=== PATIENT | male | born 1940 | race Caucasian/White ===

== ENCOUNTER → 2016-09-21 | Day surgery (SDC) | payer OTHER ==
[~2016-09-21] MED LIST: AMPICILLIN PO; ASPIRIN EC81 M1 PO; ASPIRIN81 M2 PO; CELECOXIB200 M1 PO; CELECOXIB200 MG PO; CLARITIN10 M2 PO; CLARITIN10 M3 PO; FLOMAX0.4 M1; FLOMAX0.4 M1 PO; FLONASE 0.05% N16 G1; HYDROCODON-ACE1 EAC9 PO; LEVAQUIN750 M1 PO; LIPITOR20 MG PO; MULTIVITAMINS1 EAC3 PO; NORVASC10 MG PO; PROTONIX PO; TERAZOSIN HCL10 MG PO
--- NOTE | ~2016-09-21 | OR ---
Unit #: [id number] #: [id number] Patient: ROM DUTTA [id number] [address] [place], [place] [address] [id number] O MR#: [id number] NAME: ROM DUTTA ROOM: Date of Procedure: 09/21/2016 Admission Date: 09/21/2016 Surgeon: Mane Casanova M.D. : 1940 Attending Physician: Mane Casanova M.D. Referring Physician: Mane Casanova M.D. Primary Care Physician: Tiffanie Joshi M.D. OPERATIVE REPORT PREOPERATIVE DIAGNOSES The patient had residual common bile duct stones and a biliary stent. He came for elective removal of the biliary stent and complete clearance of common bile duct. PROCEDURES PERFORMED 1. Endoscopic retrograde cholangiopancreatography and removal of the stones and debris from the common bile duct. 2. Endoscopic retrograde cholangiopancreatography and stent removal. RECOMMENDATIONS The patient will be followed up in the office in 3 to 4 months' time. Discussion will be held with the patient regarding need of cholecystectomy. At his age of 76, particularly if he has large sphincterotomy, the cholecystectomy can be deferred. This will be discussed at length with the patient when he comes back for followup. SEDATION USED MAC. POSTOPERATIVE DIAGNOSES 1. The patient had previous sphincterotomy. The biliary stent was removed. 2. There were some filling defects in the common bile duct, which were cleared by a 9 to 12 mm retrieval balloon with multiple passages through the common bile duct. The debris and stone fragments were then delivered and normal occlusion cholangiogram was documented postprocedure. DESCRIPTION OF PROCEDURE Following detailed explanation of potential risks and complications of an ERCP, namely perforation, bleeding, complication related to sedation, and pancreatitis, the patient brought to GI lab and laid in the left semiprone position. A lateral viewing duodenal scope was advanced through the oral cavity into the esophagus and advanced into the stomach. Pylorus was intubated in usual fashion. The scope was advanced in deep descending duodenum. Upon shortening the scope, major papilla and ampullary area was visualized en face. The patient was noted to have periampullary diverticulum and a stent placed in from the previous procedure. The biliary stent was removed using a polypectomy snare and delivered outside. The patient was then reintubated and through the previous sphincterotomy site, a guidewire was introduced using a sphincterotome into the common bile duct. Contrast cholangiogram was obtained that showed multiple filling defects in the distal common bile duct. Some of these were all Unit #: [id number] #: [id number] Patient: ROM DUTTA air bubbles. We then proceeded with a balloon extraction of any residual stones. This was done using 9 to 12 mm retrieval balloon and the duct was swept at 9, 10, and 11 mm settings multiple times. Multiple fragments and tiny stones were delivered into the duodenum. Normal occlusion cholangiogram was demonstrated. Excellent biliary drainage was established. The scope and the accessories were then withdrawn. The patient returned to the recovery area. He tolerated the procedure without any postprocedure complications. Dictated by... Kian Yan/josselin TD: 09/22/2016 02:08 JOB #: [id number] CC: Tiffanie Joshi M.D. OPERATIVE REPORT Page 1 of 1 X Mane Casanova MD X PROCEDURE OPERATIVE NOTE
--- NOTE | ~2016-09-21 | CR84 ---
[facility] A Service of [facility] RADIOLOGY TEXT RESULTS PATIENT: ROM DUTTA LOCATION: [facility] : 42 UNIT #: [id number] AGE: [address]: Mane Casanova MD SEX: M ORDER DR: [id number] [facility] [address] [facility]. [place], [place] [address] [id number] O MR#: [id number] Acc #: [id number] NAME: ROM DUTTA : 1940 SEX: M STUDY DATE/TIME: 09/21/2016 13:22 UNIT: [facility] ROOM: STUDY DESCRIPTION: CR ERCP Biliary and Pancr SI Attending Physician: Mane Casanova M.D. Referring Physician: Mane Casanova M.D. Ordering Physician: Mane Casanova M.D. Primary Care Physician: Tiffanie Joshi M.D. MEDICAL IMAGING REPORT This report is preliminary unless electronic signature is present EXAM ERCP, 09/21/2016 HISTORY Right upper quadrant abdominal pain and common bile duct stones. FINDINGS ERCP was performed by Dr. Casanova. 10 spot film radiographs of the right upper quadrant were obtained and 4.4 minutes of fluoroscopy time was utilized. Surgical clips are seen in the right upper quadrant from prior cholecystectomy. Contrast injection of the pancreatic duct was normal. Injection of the biliary tree was performed showing mild dilatation of the common bile duct. There are multiple filling defects characteristic of stones and air bubbles in the duct. Normal contrast drainage was seen into the duodenum. The distal common bile duct near the sphincter of Oddi was normal in appearance. Sphincterotomy was performed by Dr. Casanova. Balloon catheter was then used to remove stones from the common duct. Dictated by... Duran Morris M.D. THIS IS AN ELECTRONICALLY VERIFIED REPORT Duran Morris M.D. at 09/22/2016 7:47 AM Daniela TD: 09/21/2016 19:38 JOB #: [id number] MEDICAL IMAGING REPORT Page 1 of 1 COPY
== END | disposition home or self-care (01) ==
LOC: COPS 10:40
DX: Z46.59 Encounter for fitting and adjustment of other gastrointestinal appliance and device (principal); K80.50 Calculus of bile duct without cholangitis or cholecystitis without obstruction; K21.9 Gastro-esophageal reflux disease without esophagitis; N40.0 Benign prostatic hyperplasia without lower urinary tract symptoms; Z98.41 Cataract extraction status, right eye; Z98.42 Cataract extraction status, left eye; Z79.82 Long term (current) use of aspirin; Z79.899 Other long term (current) drug therapy
CPT/HCPCS: 74330

== ENCOUNTER 2016-09-27 19:27 | Inpatient (IN) | payer OTHER ==
--- NOTE | ~2016-09-27 | DS ---
Unit #: [id number] #: [id number] Patient: ROM WASHINGTON [id number] [address] [place], [place] [address] [id number] I MR#: [id number] NAME: ROM WASHINGTON. ROOM: 338 Age: 76 Sex: M Admission Date: 09/27/2016 : 1940 Discharge Date: 09/30/2016 Attending Physician: Mane Casanova M.D. Primary Care Physician: Tiffanie Joshi M.D. DISCHARGE SUMMARY FINAL DIAGNOSES 1. Cholangitis. 2. Common bile duct stones and debris. 3. Background history of hypertension, hyperlipidemia and osteoporosis. PROCEDURE DONE DURING CURRENT HOSPITALIZATION An ERCP and extension of sphincterotomy and biliary stent placement on 09/28/16. FOLLOWUP INSTRUCTION The patient will follow up with me in the office on 10/08/16 at 9 a.m. NARRATIVE Mr. Washington is a very pleasant, 76-year-old white gentleman who came with history of acute cholangitis, fever, chills and rigors, elevated bilirubin, LFTs. An ERCP a day later showed lots and lots of pus in the common bile duct which was drained and a biliary stent was deployed. It is noteworthy the patient already had a sphincterotomy and stone removal in the past. He does have an intact gallbladder. He responded promptly to biliary drainage and IV antibiotics and was totally free of any symptoms the day after. The management plan includes an elective outpatient laparoscopic cholecystectomy and removal of the biliary stent a few weeks later. DISCHARGE MEDICATION These included all the preadmission medications along with ampicillin 500 mg p.o. t.i.d. for four days. Dictated by... Kian Yan/thuy TD: 10/01/2016 13:44 JOB #: [id number] Unit #: [id number] #: [id number] Patient: ROM WASHINGTON DISCHARGE SUMMARY Page 1 of 1 X Mane Casanova MD DISCHARGE SUMMARY
--- NOTE | ~2016-09-27 | HP ---
Unit #: [id number] #: [id number] Patient: ROM WASHINGTON [id number] [address] [place], [place] [address] [id number] I MR#: [id number] NAME: ROM WASHINGTON ROOM: 338 Age: 76 Sex: M Admission Date: 09/27/2016 : 1940 Attending Physician: Mane Casanova M.D. Primary Care Physician: Tiffanie Joshi M.D. HISTORY AND PHYSICAL CHIEF COMPLAINT Fever, chills, and rigors and upper abdominal pain along with elevated LFTs. HISTORY OF PRESENT ILLNESS Mr. [place] is a very pleasant 76-year-old white gentleman who is well known to me. The patient had a biliary stent removed a few weeks ago following significant common bile duct stone disease. He now presents with fever, right upper quadrant abdominal pain, fever, chills, and rigors and also a history of biliary pain. PAST MEDICAL HISTORY Significant for: 1. Hypertension. 2. Hyperlipidemia. 3. Benign prostate hypertrophy. 4. Osteoporosis. PAST SURGICAL HISTORY Include cervical fusion surgery. HOME MEDICATIONS Include: 1. Norvasc. 2. Claritin. 3. Celebrex. 4. Lipitor. 5. Flonase. 6. Terazosin. 7. Flomax. ALLERGIES No known drug allergies. SOCIAL HISTORY He does not smoke but does drink 8-10 beers per week. Does not use any recreational drugs. REVIEW OF SYSTEMS Detailed review of organ systems does not reveal any recent weight loss. History of fever, chills, and rigors. No history of headache, seizures, chest pain, or syncope. No history of cough, expectoration, or hemoptysis. No history of dysuria, hematuria, or pyuria. No history of focal seizures or extremity weakness. The rest of the review is Unit #: [id number] #: [id number] Patient: ROM WASHINGTON unremarkable. PHYSICAL EXAMINATION GENERAL: He is alert and oriented and appears comfortable. VITAL SIGNS: Temperature on admission was 102.7, on antibiotics is now 98.3. Pulse 68 per minute and regular, respiratory rate 19, blood pressure 147/73. He weighs 207 pounds. HEENT: He has no pallor, icterus, lymphadenopathy, or peripheral edema. CARDIOVASCULAR: Normal heart sounds. No murmurs. LUNGS: Auscultation of the lungs revealed normal breath sounds with good air entry. ABDOMEN: Soft, nontender. Liver and spleen are not palpable. Bowel sounds are normal. DIAGNOSTIC STUDIES LABORATORY: White count 14,000 with normal hemoglobin and hematocrit. INR 1.06. Chemistry shows a total bilirubin of 5.9. Peak AST and ALT were 296 and 298 respectively. Alkaline phosphatase 193. Amylase and lipase were normal. CLINICAL IMPRESSION Most likely etiology for patient's presentation is recurrent cholangitis from gallstone disease. I think we will try and make sure the patient has a cholecystectomy this time around after common bile duct stone disease is taken care of. The patient is thus being admitted for IV antibiotics and ERCP later today. The pros and cons of the procedure, potential risks, complications were discussed. The patient was reassured. Dictated by Kian Yan TD: 09/28/2016 23:06 JOB #: [id number] HISTORY AND PHYSICAL Page 1 of 1 X Mane Casanova MD X HISTORY AND PHYSICAL
--- NOTE | ~2016-09-27 | CR84 ---
[facility] A Service of [facility] & [facility] RADIOLOGY TEXT RESULTS PATIENT: ROM DUTTA LOCATION: [facility] 338- : 42 UNIT #: [id number] AGE: [address]: Mane Casanova MD SEX: M ORDER DR: [id number] [address] [place], [place] [address] [id number] I MR#: [id number] Acc #: [id number] NAME: ROM DUTTA : 1940 SEX: M STUDY DATE/TIME: 09/28/2016 18:34 UNIT: [facility] PCU ROOM: [facility] STUDY DESCRIPTION: CR ERCP Biliary and Pancr SI Attending Physician: Mane Casanova M.D. Ordering Physician: Mane Casanova M.D. Primary Care Physician: Tiffanie Joshi M.D. MEDICAL IMAGING REPORT This report is preliminary unless electronic signature is present EXAM ERCP, 09/28/2016 INDICATIONS Cholangitis TECHNIQUE 4 small mfzbb-hr-zpbd spot fluoroscopic images from an ERCP procedure performed 09/28/[address] Casanova are submitted for review. COMPARISON 09/21/2016 FINDINGS Notes indicate that approximately 3 minutes and 13 seconds of fluoroscopy time was used in the case. 4 small rlxwb-xe-ycmc spot fluoroscopic images were submitted to the Sencha System. The pancreatic duct was not cannulated or injected. The common bile duct was cannulated and injected. It appears borderline dilated. Stones and air bubbles were reportedly encountered. A sphincterotomy was performed. A common bile duct stent was placed. Images also demonstrate apparent balloon sweeping of the duct and stone removal. Please refer to the operative port of the surgeon for further details. IMPRESSION 1. Mildly dilated common bile duct. Apparent stone extraction with balloon sweeping and common bile duct stent placement. Please see the full report of the surgeon for further details. 2. Notes indicate approximately 3 minutes and 13 seconds of fluoroscopy time was used in the case. 4 spot fluoroscopic small jjbiv-ln-adqr images were saved from the procedure to the Sencha System. [facility] A Service of [facility] & [facility] RADIOLOGY TEXT RESULTS PATIENT: ROM DUTTA LOCATION: [facility] 338-01 : 42 UNIT #: [id number] AGE: [address]: Mane Casanova MD SEX: M ORDER DR: Dictated by... Colt Espinoza M.D. THIS IS AN ELECTRONICALLY VERIFIED REPORT Colt Espinoza M.D. at 09/29/2016 11:41 AM Brenden TD: 09/29/2016 00:17 JOB #: [id number] MEDICAL IMAGING REPORT Page 1 of 1 COPY
--- NOTE | ~2016-09-27 | OR ---
Unit #: [id number] #: [id number] Patient: ROM DUTTA 160095 [address] [place], [place] [address] [id number] I MR#: [id number] NAME: ROM DUTTA. ROOM: [facility] Date of Procedure: 09/28/2016 Admission Date: 09/27/2016 Surgeon: Mane Casanova M.D. : 1940 Attending Physician: Mane Casanova M.D. Primary Care Physician: Tiffanie Joshi M.D. OPERATIVE REPORT PRIMARY CARE PHYSICIAN Tiffanie Joshi M.D. PREOPERATIVE DIAGNOSES The patient has presented with cholangitis with fever, chills, and rigors along with leukocytosis. He has history of common bile duct stones in the past. The patient still has an intact gallbladder. PROCEDURES PERFORMED 1. Endoscopic retrograde cholangiopancreatography and extension of sphincterotomy. 2. Endoscopic retrograde cholangiopancreatography and balloon sweep of the common bile duct. 3. Endoscopic retrograde cholangiopancreatography and biliary stent placement. POSTOPERATIVE DIAGNOSES Copious amounts of pus were removed from the common bile duct after cannulation through the previous sphincterotomy site. The patient did have a periampullary diverticulum. Also, multiple stone fragments were also removed with a retrieval balloon. After lavage of the duct, a 10-Angolan 7 cm biliary stent was deployed. RECOMMENDATIONS The patient will be discharged in a day or two and will have an outpatient elective laparoscopic cholecystectomy in the next couple of weeks. SEDATION USED MAC. DESCRIPTION OF PROCEDURE Following detailed explanation of the potential risks and complications of an ERCP, namely perforation, bleeding, and complication related to sedation, and pancreatitis, the patient was brought to GI lab and laid in the left semiprone position. Sedation using MAC was given. Lateral-viewing duodenoscope was advanced through the oral cavity into the esophagus and advanced into the stomach. Pylorus was intubated in the usual fashion. The scope was advanced in deep descending duodenum. Upon shortening the scope, major papilla and ampullary area was visualized en face. Periampullary diverticulum was noted. Through the previous sphincterotomy site, a cannulation was done. A guidewire was advanced into the common bile duct. Contrast cholangiogram was obtained, it showed Unit #: [id number] #: [id number] Patient: ROM DUTTA multiple small filling defects in a duct that was about 12 mm. The duct was then swept with a 12 to 15 mm retrieval balloon at 12 mm settings pressures multiple times, and copious amounts of pus and stone fragments were delivered. The sphincterotomy is extended before this was attempted. The duct was then lavaged with normal saline copiously and a 10-Angolan 7 cm biliary stent was placed in the common bile duct in excellent position. The scope and the accessories were then withdrawn. The patient returned to the recovery area. He tolerated the procedure without any postprocedure complications. Dictated by... Kian Yan/josselin TD: 09/29/2016 02:07 JOB #: [id number] OPERATIVE REPORT Page 1 of 1 X Mane Casanova MD X PROCEDURE OPERATIVE NOTE
[~2016-09-27 19:27] MED LIST changes: -AMPICILLIN PO; -ASPIRIN EC81 M1 PO; -CELECOXIB200 M1 PO; -CLARITIN10 M3 PO; -FLOMAX0.4 M1; -HYDROCODON-ACE1 EAC9 PO; -MULTIVITAMINS1 EAC3 PO
[2016-09-27 19:38] LABS: BASOPHIL% 0.2 % (0-2.5); EOSINOPHIL% 0.2 % (0.0-7.0); HEMATOCRIT 42.9 % (38.0-50.0); HEMOGLOBIN 14.7 gm/dL (13.0-16.0); LYMPHOCYTE# 0.5 X10e3 (1.0-3.5); LYMPHOCYTE% 5.6 % (17.0-45.0); MEAN CELL VOLUME 87.8 FL (83-96); MEAN CORPUSCULAR HEMOGLOBIN 30.1 PG (28-34); MEAN CORPUSCULAR HGB CONC 34.3 g/dL (30-36); MONOCYTE# 0.1 X10e3 (0-1.0); MONOCYTE% 0.6 % (3.0-12.0); NEUTROPHIL# 9.1 X10e3 (1.5-7.1); NEUTROPHIL% 93.4 % (40-75); PLATELET COUNT 162 X10e3 (140-420); RED BLOOD COUNT 4.89 X10e (3.90-5.60); RED CELL DISTRIBUTION WIDTH 12.9 % (11.0-15.5); WHITE BLOOD COUNT 9.7 X10e3 (4.0-10.5)
[2016-09-27 19:39] LABS: DIFF IND NO
[2016-09-27 20:02] LABS: ALBUMIN SERUM 4.1 g/dL (3.5-5.0); BILIRUBIN, DIRECT 3.6 mg/dL (0.0-0.2); BILIRUBIN,INDIRECT 2.3 mg/dL (0.0-0.9); BILIRUBIN,TOTAL 5.9 mg/dL (0.2-2.0); BUN/CREATININE RATIO 17.27; CREATININE SERUM 1.1 mg/dL (0.6-1.4); GLOM FILT RATE Estimated 65.8 mL/min (>60); PROTEIN TOTAL SERUM 7.3 g/dL (6.0-8.3)
[2016-09-27 21:22] LABS: URINE SOURCE CLEAN CATCH
[2016-09-27 21:27] LABS: URINE APPEARANCE CLEAR; URINE BLOOD NEG (NEG); URINE GLUCOSE NEG (NEG); URINE KETONE NEG (NEG); URINE LEUKOCYTE ESTERASE TRACE (NEG); URINE NITRATE POS (NEG); URINE PROTEIN 2+ (NEG); URINE SPECIFIC GRAVITY 1.023 (1.003-1.035)
[2016-09-27 21:29] LABS: U HYALINE CASTS AUWI 0-2 /[LPF]; URINE BACTERIA AUWI NEG (NEGATIVE); URINE SQUAMOUS EPITHELIAL CELL NONE SEEN /[HPF]; UWBCS1 AUWI 0-2 (0-5)
[2016-09-27 21:31] LABS: CULTURE INDICATED? NO; URINE BILIRUBIN POS (NEG)
[2016-09-27 21:32] LABS: URINE COLOR DK YELLOW
[2016-09-27] MEDS ORDERED: MULTIVITAMINS1 EAC3 PO (23:40)
[2016-09-27] MEDS ORDERED: LIPITOR20 MG PO (23:40)
[2016-09-27] MEDS ORDERED: CELECOXIB200 MG PO (23:42)
[2016-09-28 05:55] LABS: BASOPHIL% 0.3 % (0-2.5); DIFF IND NO; EOSINOPHIL# 0.1 X10e3 (0-0.7); EOSINOPHIL% 0.8 % (0.0-7.0); HEMATOCRIT 38.3 % (38.0-50.0); LYMPHOCYTE# 1.8 X10e3 (1.0-3.5); LYMPHOCYTE% 12.7 % (17.0-45.0); MEAN CELL VOLUME 88.2 FL (83-96); MEAN CORPUSCULAR HEMOGLOBIN 29.9 PG (28-34); MEAN CORPUSCULAR HGB CONC 33.9 g/dL (30-36); MEAN PLATELET VOLUME 10.2 FL (6.5-11.5); MONOCYTE# 1.3 X10e3 (0-1.0); MONOCYTE% 9.1 % (3.0-12.0); NEUTROPHIL# 10.9 X10e3 (1.5-7.1); NEUTROPHIL% 77.1 % (40-75); PLATELET COUNT 155 X10e3 (140-420); RED BLOOD COUNT 4.34 X10e (3.90-5.60); RED CELL DISTRIBUTION WIDTH 13.1 % (11.0-15.5); WHITE BLOOD COUNT 14.1 X10e3 (4.0-10.5)
[2016-09-28 07:09] LABS: ALBUMIN SERUM 3.5 g/dL (3.5-5.0); BILIRUBIN,TOTAL 5.6 mg/dL (0.2-2.0); BUN/CREATININE RATIO 17.27; CALCIUM SERUM 8.8 mg/dL (8.4-10.2); CREATININE SERUM 1.1 mg/dL (0.6-1.4); GLOM FILT RATE Estimated 65.8 mL/min (>60); POTASSIUM 4.3 mmol/L (3.5-5.1); PROTEIN TOTAL SERUM 6.3 g/dL (6.0-8.3)
[2016-09-29 06:12] LABS: HEMATOCRIT 38.4 % (38.0-50.0); MEAN CELL VOLUME 88.7 FL (83-96); MEAN CORPUSCULAR HGB CONC 33.8 g/dL (30-36); MEAN PLATELET VOLUME 10.3 FL (6.5-11.5); RED BLOOD COUNT 4.34 X10e (3.90-5.60); RED CELL DISTRIBUTION WIDTH 13.4 % (11.0-15.5); WHITE BLOOD COUNT 8.2 X10e3 (4.0-10.5)
[2016-09-29 06:57] LABS: ALBUMIN SERUM 3.2 g/dL (3.5-5.0); BILIRUBIN,TOTAL 1.8 mg/dL (0.2-2.0); CALCIUM SERUM 8.3 mg/dL (8.4-10.2); GLOM FILT RATE Estimated 73.8 mL/min (>60); POTASSIUM 4.3 mmol/L (3.5-5.1); PROTEIN TOTAL SERUM 5.7 g/dL (6.0-8.3)
[2016-09-30 05:42] LABS: HEMATOCRIT 40.1 % (38.0-50.0); HEMOGLOBIN 13.4 gm/dL (13.0-16.0); MEAN CELL VOLUME 88.4 FL (83-96); MEAN CORPUSCULAR HEMOGLOBIN 29.6 PG (28-34); MEAN CORPUSCULAR HGB CONC 33.4 g/dL (30-36); MEAN PLATELET VOLUME 10.5 FL (6.5-11.5); RED BLOOD COUNT 4.54 X10e (3.90-5.60); RED CELL DISTRIBUTION WIDTH 13.6 % (11.0-15.5); WHITE BLOOD COUNT 8.5 X10e3 (4.0-10.5)
[2016-09-30 07:32] LABS: ALBUMIN SERUM 3.4 g/dL (3.5-5.0); BILIRUBIN,TOTAL 1.5 mg/dL (0.2-2.0); BUN/CREATININE RATIO 13.33; CALCIUM SERUM 9.1 mg/dL (8.4-10.2); CREATININE SERUM 0.9 mg/dL (0.6-1.4); GLOM FILT RATE Estimated 83.8 mL/min (>60); POTASSIUM 4.5 mmol/L (3.5-5.1); PROTEIN TOTAL SERUM 6.1 g/dL (6.0-8.3)
[2016-09-30] MEDS ORDERED: AMPICILLIN PO (07:34)
[2016-10-13] MEDS ORDERED: ASPIRIN EC81 M1 PO (12:59)
[2016-11-19] MEDS ORDERED: NORVASC10 MG PO (16:19)
[2016-11-19] MEDS ORDERED: CLARITIN10 M3 PO (16:19)
[2016-11-19] MEDS ORDERED: FLOMAX0.4 M1 (16:19)
[2016-11-19] MEDS ORDERED: CELECOXIB200 M1 PO (16:19)
[2016-11-19] MEDS ORDERED: LIPITOR20 MG PO (16:20)
[2016-11-19] MEDS ORDERED: HYDROCODON-ACE1 EAC9 PO (16:21)
== END 2016-09-30 09:50 | disposition home or self-care (01) | DRG 445 ==
LOC: CED 19:27 → CEDOF 21:15 → C3A PCU 23:05
PROVIDERS: Emergency Medicine; Internal Medicine Gastroenterology
PROC: 0FC98ZZ Extirpation of Matter from Common Bile Duct, Via Natural or Artificial Opening Endoscopic (ICD-10-PCS; principal; 2016-09-28 20:05)
PROC: 0F798DZ Dilation of Common Bile Duct with Intraluminal Device, Via Natural or Artificial Opening Endoscopic (ICD-10-PCS; 2016-09-28 20:05)
DX: K80.32 Calculus of bile duct with acute cholangitis without obstruction (principal); I10 Essential (primary) hypertension; E78.5 Hyperlipidemia, unspecified; M81.0 Age-related osteoporosis without current pathological fracture; N40.0 Benign prostatic hyperplasia without lower urinary tract symptoms; Z72.89 Other problems related to lifestyle
CPT/HCPCS: 36415; 74330; 80048; 80053; 80076; 81003; 82150; 83605; 83690; 85025; 85027; 87040; 96361; 96374; 96375; 99285; J2250; J2270; J2405; J2543

== ENCOUNTER → 2016-10-13 | Outpatient (CLI) | payer OTHER ==
[~2016-10-13] MED LIST changes: +AMPICILLIN PO; +ASPIRIN EC81 M1 PO; +CELECOXIB200 M1 PO; +CLARITIN10 M3 PO; +FLOMAX0.4 M1; +HYDROCODON-ACE1 EAC9 PO; +MULTIVITAMINS1 EAC3 PO
[2016-10-13 13:39] LABS: ALBUMIN SERUM 4.4 g/dL (3.5-5.0); BUN/CREATININE RATIO 17.77; CALCIUM SERUM 9.2 mg/dL (8.4-10.2); CREATININE SERUM 0.9 mg/dL (0.6-1.4); GLOM FILT RATE Estimated 83.8 mL/min (>60); PROTEIN TOTAL SERUM 7.4 g/dL (6.0-8.3)
== END | disposition home or self-care (01) ==
LOC: CAMB 12:16
PROVIDERS: Surgery
DX: Z01.812 Encounter for preprocedural laboratory examination (principal)
CPT/HCPCS: 36415; 80053

== ENCOUNTER → 2016-10-19 | Day surgery (SDC) | payer OTHER ==
--- NOTE | ~2016-10-19 | EKG ---
PATIENT: ROM DUTTA UNIT #: [id number] Ventricular Rate: 60 BPM Atrial Rate: 60 BPM P-R Interval: 168 ms QRS Duration: 138 ms Q-T Interval: 452 ms QTC Calculation(Bezet): 452 ms P Bardwell: 35 degrees Calculated R Bardwell: 76 degrees Calculated T Bardwell: 50 degrees Diagnosis Line: Normal sinus rhythm Diagnosis Line: Right bundle branch block with repolarization Diagnosis Line: abnormality Diagnosis Line: Abnormal ECG Diagnosis Line: When compared with ECG of 29-MAY-2016 16:38, Diagnosis Line: Vent. rate has decreased BY 49 BPM Diagnosis Line: T wave inversion no longer evident in Anterior Diagnosis Line: leads Diagnosis Line: QT has shortened Diagnosis Line: Confirmed by GARO ROQUE MD ([id number]) on 10/21/2016 Diagnosis Line: 9:38:11 AM INTERPRETING MD: JUDE RODRIGUEZ
--- NOTE | ~2016-10-19 | OR ---
Unit #: [id number] #: [id number] Patient: ROM DUTTA [id number] [address] [address] [id number] O MR#: [id number] NAME: ROM DUTTA ROOM: Date of Procedure: 10/19/2016 Admission Date: 10/19/2016 Surgeon: Tye Avila M.D. : 1940 Attending Physician: Tye Avila M.D. Primary Care Physician: Tiffanie Joshi M.D. OPERATIVE REPORT PREOPERATIVE DIAGNOSIS Chronic cholecystitis. POSTOPERATIVE DIAGNOSIS Chronic cholecystitis. PROCEDURE PERFORMED Laparoscopic cholecystectomy. [employer] Dr. Sam. ANESTHESIA General endotracheal anesthesia. ESTIMATED BLOOD LOSS Minimal. IV FLUIDS 800 crystalloid. COMPLICATIONS None. INDICATIONS FOR PROCEDURE The patient is a 76-year-old with history of gallstones and common duct stones. He presents for laparoscopic cholecystectomy. DESCRIPTION OF PROCEDURE The patient was taken to the operating theater and placed in supine position. General anesthesia was induced. The abdomen was prepped and draped. A 5-mm Optiview trocar was placed in the right upper quadrant without difficulty. The abdomen was insufflated to 15 mmHg with CO2. Under direct vision, I placed a subxiphoid 10 mm, right lateral 5 mm, umbilical 5 mm. General inspection of the abdomen revealed distended swollen gallbladder with multiple adhesions. These were taken down. I dissected the neck of the gallbladder and identified the cystic duct. Its junction with the gallbladder was confirmed. It was thus skeletonized, doubly hemoclipped, and divided. The cystic artery laid immediately posterior. This was skeletonized, doubly hemoclipped, and divided. The gallbladder was removed from the gallbladder bed with Bovie electrocautery and delivered via the subxiphoid port. Hemostasis was adequate. I removed the ports under direct vision and closed the fascia with 0 Vicryl Unit #: [id number] #: [id number] Patient: ROM DUTTA and skin with 4-0 Vicryl. The patient tolerated the procedure well and sent to the recovery room in good condition. Dictated by... Kian MottO/ezequiell TD: 10/20/2016 02:57 JOB #: [id number] OPERATIVE REPORT Page 1 of 1 X Tye Avila MD PROCEDURE OPERATIVE NOTE
== END | disposition home or self-care (01) ==
LOC: CSUR 08:35
PROVIDERS: Surgery
PROC: 0FT44ZZ Resection of Gallbladder, Percutaneous Endoscopic Approach (ICD-10-PCS; principal; 2016-10-19 10:30)
DX: K81.1 Chronic cholecystitis (principal); K21.9 Gastro-esophageal reflux disease without esophagitis; I10 Essential (primary) hypertension; N40.0 Benign prostatic hyperplasia without lower urinary tract symptoms; E78.00 Pure hypercholesterolemia, unspecified; M19.90 Unspecified osteoarthritis, unspecified site; J30.9 Allergic rhinitis, unspecified; Z79.899 Other long term (current) drug therapy; Z87.891 Personal history of nicotine dependence; Z98.890 Other specified postprocedural states; Z82.49 Family history of ischemic heart disease and other diseases of the circulatory system; Z82.3 Family history of stroke; Z83.3 Family history of diabetes mellitus
CPT/HCPCS: 88304; 93005; J0131; J0330; J0690; J1100; J1885; J2405; J2710; J3010

== ENCOUNTER 2016-10-23 08:51 | Emergency (ER) | payer OTHER ==
--- NOTE | ~2016-10-23 | CT2 ---
[facility] A Service of [facility] RADIOLOGY TEXT RESULTS PATIENT: ROM DUTTA LOCATION: [facility] : 42 UNIT #: [id number] AGE: [address]: Zac Pastrana MD SEX: M ORDER DR: [id number] [facility] [address] [facility]. [place], [place] [address] [id number] MR#: [id number] Acc #: [id number] NAME: ROM DUTTA. : 1940 SEX: M STUDY DATE/TIME: 10/23/2016 9:30 UNIT: [facility] ROOM: STUDY DESCRIPTION: CT Abd and Pelv W Cont Attending Physician: Zac Pastrana M.D. Ordering Physician: Zac Pastrana M.D. Primary Care Physician: Tiffanie Joshi M.D. MEDICAL IMAGING REPORT This report is preliminary unless electronic signature is present EXAM CT abdomen and pelvis with contrast INDICATIONS Right-sided abdominal pain since cholecystectomy on 10/19/2016. PROCEDURE Contrast-enhanced CT of the abdomen and pelvis. 100 mL of Isovue-370. This CT exam was performed with one or more of the following radiation dose reduction techniques: automatic exposure control, adjustment of mA and/or kV according to patient size, and iterative reconstruction. COMPARISON 05/29/2016 FINDINGS Calcified pleural-based plaques in the included lung bases are similar to the previous study. Pneumobilia. There is a common duct stent in place. The patient has undergone interval cholecystectomy. There is no fluid collection in the gallbladder fossa. No evidence for choledocholithiasis by CT. The spleen, kidneys, adrenal glands, pancreas unremarkable. Bowel loops nondilated. PELVIS WITH CONTRAST: No pelvic mass or fluid. No aggressive- appearing bone lesion. IMPRESSION 1. Cholecystectomy. There is mild postsurgical change in the gallbladder fossa, but no organized fluid collection or evidence for an abscess. [facility] A Service [facility] RADIOLOGY TEXT RESULTS PATIENT: ROM DUTTA LOCATION: [facility] : 42 UNIT #: [id number] AGE: [address]: Zac Pastrana MD SEX: M ORDER DR: 2. Common duct stent in place with pneumobilia. No CT evidence for choledocholithiasis. Dictated by... Elmer Dejesus M.D. THIS IS AN ELECTRONICALLY VERIFIED REPORT Elmer Dejesus M.D. at 10/26/2016 7:42 AM CAMILLA/ifeoma TD: 10/23/2016 12:27 JOB #: [id number] MEDICAL IMAGING REPORT Page 1 of 1 COPY
[2016-10-23 08:29] LABS: BASOPHIL# 0.1 X10e3 (0-0.3); BASOPHIL% 0.5 % (0-2.5); EOSINOPHIL# 0.4 X10e3 (0-0.7); EOSINOPHIL% 2.8 % (0.0-7.0); HEMATOCRIT 42.3 % (38.0-50.0); HEMOGLOBIN 14.3 gm/dL (13.0-16.0); LYMPHOCYTE# 2.9 X10e3 (1.0-3.5); LYMPHOCYTE% 23.3 % (17.0-45.0); MEAN CELL VOLUME 87.9 FL (83-96); MEAN CORPUSCULAR HEMOGLOBIN 29.6 PG (28-34); MEAN CORPUSCULAR HGB CONC 33.7 g/dL (30-36); MEAN PLATELET VOLUME 10.3 FL (6.5-11.5); MONOCYTE# 1.2 X10e3 (0-1.0); MONOCYTE% 9.3 % (3.0-12.0); NEUTROPHIL% 64.1 % (40-75); PLATELET COUNT 150 X10e3 (140-420); RED BLOOD COUNT 4.82 X10e (3.90-5.60); RED CELL DISTRIBUTION WIDTH 13.4 % (11.0-15.5); WHITE BLOOD COUNT 12.4 X10e3 (4.0-10.5)
[2016-10-23 08:31] LABS: DIFF IND NO
[2016-10-23 08:42] LABS: URINE SOURCE CLEAN CATCH
[2016-10-23 08:48] LABS: URINE APPEARANCE CLEAR; URINE BILIRUBIN NEG (NEG); URINE BLOOD NEG (NEG); URINE COLOR YELLOW; URINE GLUCOSE NEG (NEG); URINE KETONE NEG (NEG); URINE LEUKOCYTE ESTERASE NEG (NEG); URINE NITRATE NEG (NEG); URINE PROTEIN NEG (NEG); URINE SPECIFIC GRAVITY 1.018 (1.003-1.035)
[~2016-10-23 08:51] MED LIST changes: -CELECOXIB200 M1 PO; -CLARITIN10 M3 PO; -FLOMAX0.4 M1; -HYDROCODON-ACE1 EAC9 PO
[2016-10-23 08:54] LABS: CULTURE INDICATED? NO
[2016-10-23 09:03] LABS: ALBUMIN SERUM 4.2 g/dL (3.5-5.0); BILIRUBIN, DIRECT 0.4 mg/dL (0.0-0.2); BILIRUBIN,INDIRECT 1.2 mg/dL (0.0-0.9); BILIRUBIN,TOTAL 1.6 mg/dL (0.2-2.0); BUN/CREATININE RATIO 15.55; CALCIUM SERUM 9.1 mg/dL (8.4-10.2); CREATININE SERUM 0.9 mg/dL (0.6-1.4); GLOM FILT RATE Estimated 83.8 mL/min (>60); PROTEIN TOTAL SERUM 7.2 g/dL (6.0-8.3)
[2016-11-19] MEDS ORDERED: CELECOXIB200 M1 PO (16:19)
[2016-11-19] MEDS ORDERED: NORVASC10 MG PO (16:19)
[2016-11-19] MEDS ORDERED: CLARITIN10 M3 PO (16:19)
[2016-11-19] MEDS ORDERED: FLOMAX0.4 M1 (16:19)
[2016-11-19] MEDS ORDERED: LIPITOR20 MG PO (16:20)
[2016-11-19] MEDS ORDERED: HYDROCODON-ACE1 EAC9 PO (16:21)
== END 2016-10-23 10:35 | disposition home or self-care (01) ==
LOC: CED 08:51
PROVIDERS: Emergency Medicine
DX: R10.9 Unspecified abdominal pain (principal)
CPT/HCPCS: 36415; 74177; 80048; 80076; 81003; 83690; 85025; 96361; 96374; 99284; J1170; Q9967

== ENCOUNTER → 2016-11-27 | Day surgery (SDC) | payer OTHER ==
[~2016-11-27] MED LIST changes: +CELECOXIB200 M1 PO; +CLARITIN10 M3 PO; +FLOMAX0.4 M1; +HYDROCODON-ACE1 EAC9 PO
--- NOTE | ~2016-11-27 | CR84 ---
[facility] A Service of [facility] & [facility] RADIOLOGY TEXT RESULTS PATIENT: ROM DUTTA LOCATION: [facility] : 42 UNIT #: [id number] AGE: [address]: Mane Casanova MD SEX: M ORDER DR: [id number] [place] [id number] [facility]. [place], [place] [address] [id number] O MR#: [id number] Acc #: [id number] NAME: ROM DUTTA : 1940 SEX: M STUDY DATE/TIME: 11/27/2016 15:00 UNIT: [facility] ROOM: STUDY DESCRIPTION: CR ERCP Biliary and Pancr SI Attending Physician: Mane Casanova M.D. Ordering Physician: Mane Casanova M.D. Primary Care Physician: Tiffanie Joshi M.D. MEDICAL IMAGING REPORT This report is preliminary unless electronic signature is present EXAM ERCP INDICATIONS Common bile duct stones. Patient underwent stent deployment 09/28/16. FINDINGS Four fluoroscopic images from endoscopy are submitted for interpretation. These show cannulation of the patient's common bile duct. Balloon sweep was performed. Patient was noted to have some dilatation of the common bile duct as well as stones. Sphincterotomy was performed. No new stent was left in place. IMPRESSION ERCP findings as noted above. Please see Dr. Casanova's report for full description of the procedure and findings. Total fluoroscopy time was 1 minute and 25 seconds. Dictated by... Jina Powell M.D. THIS IS AN ELECTRONICALLY VERIFIED REPORT Jina Powell M.D. at 11/29/2016 10:48 AM AFF/ea TD: 11/28/2016 11:57 JOB #: [id number] MEDICAL IMAGING REPORT Page 1 of 1 COPY
--- NOTE | ~2016-11-27 | OR ---
Unit #: [id number] #: [id number] Patient: ROM DUTTA [id number] [address] [place], [place] [address] [id number] O MR#: [id number] NAME: ROM DUTTA ROOM: Date of Procedure: 11/27/2016 Admission Date: 11/27/2016 Surgeon: Mane Casanova M.D. : 1940 Attending Physician: Mane Casanova M.D. Primary Care Physician: Tiffanie Joshi M.D. OPERATIVE REPORT PREOPERATIVE DIAGNOSES The patient has come for elective biliary stent removal. He has history of common bile duct stones. PROCEDURES PERFORMED 1. Endoscopic retrograde cholangiopancreatography and stent removal. 2. Endoscopic retrograde cholangiopancreatography and common bile duct stone removal. POSTOPERATIVE DIAGNOSES After removal of biliary stent, the sphincterotomy is extended at the site of a periampullary diverticulum. The duct was then swept with a 9 to 12 mm retrieval balloon multiple times and one pigmented stone and considerable amount of debris was then delivered in the duodenum. A normal occlusion cholangiogram was demonstrated towards the end of the procedure with excellent biliary drainage. RECOMMENDATIONS We will obtain the patient's CBC, CMP, amylase, and lipase before sending him home. He will follow up in the office in 3 months' time. SEDATION USED MAC. DESCRIPTION OF PROCEDURE Following detailed explanation of the potential risks and complications of an ERCP, namely perforation, bleeding, complication related to sedation, and pancreatitis, the patient was brought to GI lab and laid in the left semiprone position. Sedation using MAC was given. Lateral-viewing duodenoscope was advanced through the oral cavity into the esophagus and advanced into the stomach. Pylorus was intubated in the usual fashion. The scope was advanced in deep descending duodenum. Upon shortening the scope, major papilla and ampullary area was visualized en face. The biliary stent was in place in normal position. It was removed using a polypectomy snare and delivered outside. The patient was then reintubated and through the previous sphincterotomy site, a guidewire was introduced and advanced to the common bile duct. The cholangiogram was obtained, that showed multiple filling defects, but otherwise decompressed common bile duct. This CBD was dilated about 8 mm. The sphincterotomy site was then extended by 3 or 4 mm. The common bile duct was then swept with a 9 to 12 mm retrieval balloon multiple times at 9, 10, and 12 mm pressures. Normal occlusion cholangiogram was demonstrated postprocedure. A sizable Unit #: [id number] #: [id number] Patient: ROM DUTTA pigmented biliary stone and considerable amount of debris was delivered into the duodenum. The scope and the accessories were then withdrawn and the patient returned to the recovery area. He tolerated the procedure without any postprocedure complications. Dictated by... Kian Yan/josselin TD: 11/27/2016 18:50 JOB #: [id number] CC: . OPERATIVE REPORT Page 1 of 1 X Mane Casanova MD X PROCEDURE OPERATIVE NOTE
[2016-11-27 16:49] LABS: BASOPHIL# 0.1 X10e3 (0-0.3); EOSINOPHIL# 0.5 X10e3 (0-0.7); EOSINOPHIL% 6.8 % (0.0-7.0); HEMATOCRIT 40.9 % (38.0-50.0); HEMOGLOBIN 13.8 gm/dL (13.0-16.0); LYMPHOCYTE# 2.2 X10e3 (1.0-3.5); LYMPHOCYTE% 30.6 % (17.0-45.0); MEAN CELL VOLUME 88.8 FL (83-96); MEAN CORPUSCULAR HEMOGLOBIN 29.9 PG (28-34); MEAN CORPUSCULAR HGB CONC 33.7 g/dL (30-36); MEAN PLATELET VOLUME 10.2 FL (6.5-11.5); MONOCYTE# 0.6 X10e3 (0-1.0); MONOCYTE% 8.9 % (3.0-12.0); NEUTROPHIL# 3.8 X10e3 (1.5-7.1); NEUTROPHIL% 52.7 % (40-75); PLATELET COUNT 136 X10e3 (140-420); RED BLOOD COUNT 4.61 X10e (3.90-5.60); RED CELL DISTRIBUTION WIDTH 13.6 % (11.0-15.5); WHITE BLOOD COUNT 7.2 X10e3 (4.0-10.5)
[2016-11-27 16:53] LABS: DIFF IND NO
[2016-11-27 17:23] LABS: BILIRUBIN,TOTAL 0.9 mg/dL (0.2-2.0); CALCIUM SERUM 8.9 mg/dL (8.4-10.2); CREATININE SERUM 0.8 mg/dL (0.6-1.4); POTASSIUM 3.8 mmol/L (3.5-5.1); PROTEIN TOTAL SERUM 6.6 g/dL (6.0-8.3)
== END | disposition home or self-care (01) ==
LOC: COPS 13:39
PROVIDERS: Internal Medicine Gastroenterology
DX: Z46.59 Encounter for fitting and adjustment of other gastrointestinal appliance and device (principal); K80.50 Calculus of bile duct without cholangitis or cholecystitis without obstruction; K57.10 Diverticulosis of small intestine without perforation or abscess without bleeding; F17.210 Nicotine dependence, cigarettes, uncomplicated; K21.9 Gastro-esophageal reflux disease without esophagitis; Z79.1 Long term (current) use of non-steroidal anti-inflammatories (NSAID); Z79.891 Long term (current) use of opiate analgesic; Z79.899 Other long term (current) drug therapy; Z98.890 Other specified postprocedural states
CPT/HCPCS: 74330; 80053; 82150; 83690; 85025